=== PATIENT | male | born 1980 | race Caucasian/White ===

== ENCOUNTER 2017-08-29 23:29 | Emergency (ER) | payer OTHER, BC ==
[2017-08-30 00:28] LABS: AMPHETAMINES NEGATIVE (NEGATIVE); BARBITUATES NEGATIVE (NEGATIVE); BENZODIAZEPINES NEGATIVE (NEGATIVE); CANNABINOL(THC) NEGATIVE (NEGATIVE); COCAINE(COC) NEGATIVE (NEGATIVE); METHADONE NEGATIVE (NEGATIVE); METHAMPHETAMINES NEGATIVE (NEGATIVE); OPIATES(OP13) NEGATIVE (NEGATIVE); OXYCODONE(OXY) NEGATIVE (NEGATIVE); PROPOXYPHENE(PPX) NEGATIVE (NEGATIVE); TRICYCLIC ANTIDEPRESSANTS NEGATIVE (NEGATIVE)
[2017-08-30 00:37] VITALS: RESP 18; O2SAT 96
[2017-08-30] MEDS ORDERED: KETOROLAC TROMETHAMINE 30 MG/ML SOL IM ONE (01:08)
[2017-08-30] MEDS ORDERED: KETOROLAC TROMETHAMINE 30 MG/ML SOL ONE (01:11)
[2017-08-30] MEDS ORDERED: NAPROXEN 500 MG TAB PO PRN (01:51)
[2017-08-30 03:13] VITALS: BP 127/73; PULSE 72; TEMP 96.8
[2017-08-30] MEDS ORDERED: CYCLOBENZAPRINE 10 MG TAB PO SCH (09:00)
== END 2017-08-30 03:00 | disposition home or self-care (01) | DRG 552 ==
LOC: ED 23:29
DX: S13.4XXA Sprain of ligaments of cervical spine, initial encounter (principal)
CPT/HCPCS: 72125; 80305; 80307; 96372; 99283; 99285; J1885